=== PATIENT | female | born 2000 | race Two or more races ===

== ENCOUNTER → 2025-03-29 | Outpatient (CLI) | payer OTHER, SELFPAY ==
--- NOTE | 2025-03-29 16:27 | XR_ITS ---
Examination: Complete OB ultrasound, less than 14 weeks, transabdominal Date and time of exam: March 29, 2025 1632 hours INDICATION: Pelvic cramping beginning one week ago Technique: Obstetrical ultrasound images less than 14 weeks performed via transabdominal imaging Findings: Uterus 8.5 cm, intrauterine gestational sac several 0.5 cm corresponds to 5 weeks 2 days gestational age No pole, no cardiac activity Right ovary 3.4 cm arterial flow Left ovary 2.5 cm arterial flow IMPRESSION: Empty intrauterine gestational sac corresponding to 5 weeks 2 days gestational age Recommend continued short-term follow-up to document viability
== END | disposition home or self-care (01) ==
PROVIDERS: PCP Registered Nurse; Referring Provider Registered Nurse; Visit Provider Registered Nurse
DX: Z34.91 Encounter for supervision of normal pregnancy, unspecified, first trimester (principal)
CPT/HCPCS: 76801

== ENCOUNTER → 2025-03-30 | Outpatient (CLI) | payer OTHER, SELFPAY ==
[2025-03-30 17:49] LABS: HCG Titer if Positive Positive
[2025-03-30 18:26] LABS: Beta HCG,Quantitative 6062 mIU/mL (<5.0)
== END | disposition home or self-care (01) ==
LOC: COPL 16:34
PROVIDERS: PCP Registered Nurse; Referring Provider Registered Nurse; Visit Provider Registered Nurse
DX: Z34.91 Encounter for supervision of normal pregnancy, unspecified, first trimester (principal)
CPT/HCPCS: 36415; 84702; 84703

== ENCOUNTER → 2025-04-13 | Outpatient (CLI) | payer OTHER, SELFPAY ==
--- NOTE | 2025-04-13 10:34 | XR_ITS ---
Examination: Complete OB ultrasound, less than 14 weeks, transabdominal Date and time of exam: 2024 1059 hours INDICATIONS: Pelvic cramping and vomiting several weeks Technique: Obstetrical ultrasound images less than 14 weeks performed via transabdominal imaging Findings: A normal shaped single intrauterine gestation is present in the uterus. pole 0.7 cm correspondences 6 weeks 3 days gestational age Cardiac motion 126 BPM Ultrasonographic survey of visible and placental structures unremarkable. Amniotic fluid volume appears appropriate for this estimated gestational age. Right ovary 3.2 cm arterial flow Left ovary 2.7 cm arterial flow IMPRESSION: Viable intrauterine gestation 6 weeks 3 days.
[2025-04-13 12:32] LABS: Beta HCG,Quantitative 64729 mIU/mL (<5.0)
== END | disposition home or self-care (01) ==
LOC: CDIM 10:29 → COPL 11:21
PROVIDERS: PCP Registered Nurse; Referring Provider Registered Nurse; Visit Provider Radiology Diagnostic Radiology
DX: O26.91 Pregnancy related conditions, unspecified, first trimester (principal); Z3A.01 Less than 8 weeks gestation of pregnancy
CPT/HCPCS: 36415; 76801; 84702

== ENCOUNTER 2025-05-16 13:38 | Outpatient (AMB) | payer OTHER, SELFPAY ==
[2025-05-16 13:54] VITALS: BP 116/75; PULSE 93; RESP 17; TEMP 36.7; O2SAT 98; BMI 24.0
--- NOTE | 2025-05-16 13:54 | OBCLNT_ITS ---
Vital Signs 05/16/25 13:54 Height 1.47 m Height Method Measured Weight 52.277 kg Weight Measurement Method Standing Scale BMI 24.0 BP 116/75 Blood Pressure Source Automatic Cuff Blood Pressure Location Right Upper Arm Position Sitting Respiration 17 Pulse 93 Pulse Source Monitor Temp 98.0 F Temp Source Temporal Artery Scan Pulse Oximetry (%) 98 Oxygen Delivery Method Room Air Allergies/Home Meds Allergies & Medications Allergies No Known Allergies Allergy (Verified 05/16/25 13:55) Intake Visit Data Collection New Patient or Established: Established Patient (seen at [facility] within 3 years) Reason for Visit:: OBI Consent obtained for Telemed Visit: No Seen by Clinical Staff ONLY (RN/MA): No Civil Engineer'S Aide Required: No Do You Feel Safe at Home: Yes Authorities Contacted: N/A PCP or OBGYN visit in last 3 months: Yes Date of Last PCP or OBGYN visit: 05/15/25 Hx Now: Yes Are you currently on any form of Control: No Last menstrual period: 02/22/25 Pain Present Currently: No Pain Scale Used: Nelson-Ovalles/Numerical Pain scale:: 0 Smoking Status Smoking Status: Never smoker Questionnaires Covid-19 Vaccine Questionnaire Has patient been vacinated for Covid-19 Have you been vacinated for Covid-19: Yes PHQ-9 PHQ-2 Over the last 2 weeks, how often have you been bothered by any of the following problems? 1. Little interest or pleasure in doing things: not at all 2. Feeling down, depressed, or hopeless: not at all Total score: 0 PHQ-9 3. Trouble falling or staying asleep, or sleeping too much: Not at all 4. Feeling tired or having little energy: Not at all 5. Poor appetite or overeating: Not at all 6. Feeling bad about yourself - or that you are a failure or have let yourself or your family down: Not at all 7. Trouble concentrating on things, such as reading the newspaper or watching television: Not at all 8. Moving or speaking so slowly that other people could have noticed? - Or the opposite - being so fidgety or restless that you have been moving around a lot more than usual: not at all 9. Thoughts that you would be better off or of hurting yourself in some way: Not at all Total score: 0 If you checked off any problems, how difficult have these problems made it for you to do your work, take care of things at home, or get along with other people?: not difficult at all Source: Developed by Drs. Jasmeet Shafer, Antonina Dominguez, Claus Butler and colleagues, with an educational amanuel from [employer]. Depression screen completed yes Social History Living Situation History Lives With: Family Housing: House Tobacco History Smoking Status: Never smoker Alcohol History Alcohol Intake: Current (socially) Domestic Abuse History Do You Feel Safe at Home: Yes History of Present Illness HPI Narrative 25-year-old 3 para 0 is here for OBI appointment. Patient has a history of 2 missed carriages in the first trimester. She denies any bleeding or cramping at this time. She reports that her periods are every month and the last about 5 days. Her last period February 22, 2025. On April 13, 2025 patient was seen in the ER and she was 6 weeks 2 days. This gives an EDC December 05, 2025. The patient is very excited. Denies social habits. Denies surgery. Denies chronic illness. Father of the baby is involved and supportive. And patient is taking vitamins. 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 She had a ultrasound April 13, 2025. Patient was 6 weeks 2 and this gives a due date . 25-year-old 3 para 0 for OBI. She had a ultrasound April 13, 2025. Patient was 6 weeks 2 and this gives a due date . no sab complaints. Happy, no VB,no UC,No leaking. taking PNV Schedule OB sono for viability here at the OB. I also ordered OB panel and hemoglobin A1c for today. Patient will discuss NIPT with her insurance and when she is ready we will do the NIPT test and also schedule appointment for anatomy scan in [place]. Discussed SAB precautions. Continue vitamins. Return in 4 weeks OB check Menstrual History Menstrual reliability: definite Flow: normal Menstrual regularity: regular Monthly: Yes Age at menarche: 12 On control pills at conception: No Date of positive home test: 03/14/25 OB History : 3 Para: 0 Hx # Pregnancies: 0 Hx Total # of Abortions (Spontaneous & Elective): 2 # of Living Children: 0 Infection History & Risk Evaluation History of STDs: none HIV risk evaluation: low risk Hepatitis B risk evaluation: low risk Patient or partner has history of Genital Herpes: No Genetic Screening & History Genetic Screening/Teratology Counseling - Includes patient, baby's father, or anyone in either family with: 1. Patient's age 35 years or older as of estimated date of delivery: No 2. Thalassemia (Citizen Of [place], [place]an, Mediterranean, or Background); MCV less than 80: No 3. Neural Tube Defect (Meningomyelocele, Spina Bifida, or Anencephaly): No 4. Congenital Heart Defect: No 5. Down Syndrome: No 6. Bill-Sachs (Ashkenazi Mormonism, Cajun, Kiswahili Bermudian): No 7. Claude Disease (Ashkenazi Mormonism): No 8. Familial Dysautonomia (Ashkenazi Mormonism): No 9. Sickle Cell Disease or Trait (): No 10. Hemophilia or other blood disorders: No 11. Muscular Dystrophy: No 12. Cystic Fibrosis: No 13. Tiller's Chorea: No 14. Mental Retardation/Autism: No 15. Other inherited genetic or chromosomal disorder: No 16. Maternal Metabolic Disorder (EG,TYPE 1 Diabetes, PKU): No 17. Patient or baby's father had a child with defects not listed above: No 18. Recurrent loss or a stillbirth: No 19. Medications (including supplements, vitamins, herbs or otc drugs)/illicit/recreational drugs/alcohol since last menstrual period: No 20. Any other: No Infection History 1. Live with someone with TB or exposed to TB: No 2. Rash or viral illness since last menstrual period: No 3. Hepatitis B,C: No Other (see comments) Source: [employer] Review of Systems Review of Systems Systems Reviewed: All systems reviewed, normal except as documented Exam General Limitations: no limitations General Appearance: alert, in no apparent distress, comfortable, cooperative, healthy appearing, well developed and well groomed Neck Neck exam: Present normal inspection, full ROM and trachea midline Chest Chest inspection: Present normal inspection and symmetric chest wall rise Resp Respiratory exam: Present normal lung sounds bilaterally Card Cardiovascular exam: Present regular rate, normal rhythm and normal heart sounds Psych Psychiatric exam: Present normal affect and normal mood Office Procedures OB Clinic LOC & Office Proc's Nursing/Assessment Patient Status: Established Patient OB Clinic Nursing Assessment: Medication Reconciliation, Update PMH in EMR and Vital Signs OB Clinic Coordination of Care: Complex Care and Chronic Disease 1-5, Con sent,records obtained, informed consent, Education Simp Pt/Fam, 4+ Authorizations needed and Lab and Imaging orders Special Needs: Heart tones Established Patient Charge Established Patient Point Assignment: 145 Established Patient Point Charge: EP Level 4 (120-155) Assessment & Plan Diagnosis / Problem List (1) High-risk in first trimester: Status: Acute (2) Prior miscarriage with , antepartum: Status: Acute Plan OB panel and sono for viability here at [facility]. Discussed SAB precautions. Patient will be applying for [employer]. Patient is also going to talk with her current insurance to see if they will cover NIPT and gender screening and also OB sono at [facility]. Return in 4 weeks OB check Additional Plan Follow Up: 4 Weeks (obc)
== END 2025-05-16 14:28 | disposition home or self-care (01) ==
LOC: HODSOBC 13:38
PROVIDERS: PCP Registered Nurse; Referring Provider Registered Nurse; Supervising Provider Advanced Practice Midwife; Visit Provider Advanced Practice Midwife
DX: O09.291 Supervision of pregnancy with other poor reproductive or obstetric history, first trimester (principal); O26.21 Pregnancy care for patient with recurrent pregnancy loss, first trimester; Z3A.11 11 weeks gestation of pregnancy
CPT/HCPCS: 99214; G0463

== ENCOUNTER 2025-06-13 13:56 | Outpatient (AMB) | payer OTHER, SELFPAY ==
[2025-06-13 14:11] VITALS: BP 114/78; PULSE 96; RESP 17; TEMP 36.8; O2SAT 98; BMI 25.4
--- NOTE | 2025-06-13 14:11 | AMB.OBVISIT ---
Vital Signs 06/13/25 14:11 Height 1.47 m Height Method Measured Weight 54.998 kg Weight Measurement Method Standing Scale BMI 25.4 BP 114/78 Blood Pressure Source Automatic Cuff Blood Pressure Location Right Upper Arm Position Sitting Respiration 17 Pulse 96 Pulse Source Monitor Temp 98.3 F Temp Source Temporal Artery Scan Pulse Oximetry (%) 98 Oxygen Delivery Method Room Air Allergies/Home Meds Allergies & Medications Allergies No Known Allergies Allergy (Verified 06/13/25 14:12) Intake Visit Data Collection New Patient or Established: Established Patient (seen at [facility] within 3 years) Reason for Visit:: OBC Consent obtained for Telemed Visit: No Seen by Clinical Staff ONLY (RN/MA): No Recreational Specialist Required: No Do You Feel Safe at Home: Yes Authorities Contacted: N/A PCP or OBGYN visit in last 3 months: Yes Date of Last PCP or OBGYN visit: 05/16/25 Hx Now: Yes Are you currently on any form of Control: No Pain Present Currently: No Pain Scale Used: Nelsno-Ovalles/Numerical Pain scale:: 0 Smoking Status Smoking Status: Never smoker Questionnaires Covid-19 Vaccine Questionnaire Has patient been vacinated for Covid-19 Have you been vacinated for Covid-19: Yes PHQ-9 PHQ-2 Over the last 2 weeks, how often have you been bothered by any of the following problems? 1. Little interest or pleasure in doing things: not at all PHQ-9 3. Trouble falling or staying asleep, or sleeping too much: Not at all 4. Feeling tired or having little energy: Not at all 5. Poor appetite or overeating: Not at all 6. Feeling bad about yourself - or that you are a failure or have let yourself or your family down: Not at all 7. Trouble concentrating on things, such as reading the newspaper or watching television: Not at all 8. Moving or speaking so slowly that other people could have noticed? - Or the opposite - being so fidgety or restless that you have been moving around a lot more than usual: not at all 9. Thoughts that you would be better off or of hurting yourself in some way: Not at all If you checked off any problems, how difficult have these problems made it for you to do your work, take care of things at home, or get along with other people?: not difficult at all Source: Developed by Drs. Jasmeet Shafer, Antonina Dominguez, Claus Butler and colleagues, with an educational amanuel from [employer]. 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 She had a ultrasound April 13, 2025. Patient was 6 weeks 2 and this gives a due date . 25-year-old 3 para 0 for OBI. She had a ultrasound April 13, 2025. Patient was 6 weeks 2 and this gives a due date . no sab complaints. Happy, no VB,no UC,No leaking. taking PNV Schedule OB sono for viability here at the OB. I also ordered OB panel and hemoglobin A1c for today. Patient will discuss NIPT with her insurance and when she is ready we will do the NIPT test and also schedule appointment for anatomy scan in [place]. Discussed SAB precautions. Continue vitamins. Return in 4 weeks OB check 06/13/25 <del>?</del> 15w 6d 54.998 kg 114/78 absent unknown 15 155 absent Doing well. Positive light movement. Patient denies leaking, denies bleeding, denies contractions. New swab today for GC and chlamydia. RPR, rubella, hepatitis B, hep C today. Discussed with patient ordering NIPT, carrier screen and AFP. And referral was requested for those. And I did a maternal- medicine ultrasound scheduled with Dr. Marr. Discussed SAB precautions. Return in 4 weeks for OB check EZEQUIEL Calculator Estimated Delivery Date Method Current WG Current Estimate 11/29/25 LMP (Certain) 15w 6d Notes Visit Date: 06/13/25 Last Updated by: Emi Paredes CNM 25 yo . B+,abs-, RPR Visit Date: 05/16/25 Last Updated by: Emi Paredes CNM sono 04/13/25: 6w2. EDC 12/05/25 Exam General Limitations: no limitations General Appearance: alert, in no apparent distress, comfortable, cooperative, healthy appearing, well developed and well groomed Head Head exam: atraumatic, normocephalic and normal inspection Chest Chest inspection: Present normal inspection and symmetric chest wall rise Resp Respiratory exam: Present normal lung sounds bilaterally Abdominal Abdominal exam: Present soft and normal bowel sounds Psych Psychiatric exam: Present normal affect and normal mood Office Procedures OB Clinic LOC & Office Proc's Nursing/Assessment Patient Status: Established Patient OB Clinic Nursing Assessment: Medication Reconciliation, Update PMH in EMR and Vital Signs OB Clinic Coordination of Care: Complex Care and Chronic Disease 1-5, Education Complex Pt/Fam, Consent,records obtained, informed consent and Results/Orders obtained Special Needs: Heart tones Established Patient Charge Established Patient Point Assignment: 115 Established Patient Point Charge: EP Level 3 (80-115) Assessment & Plan Diagnosis / Problem List (1) High-risk in first trimester: Status: Acute (2) Prior miscarriage with , antepartum: Status: Acute Plan New swab today for GC and chlamydia. RPR, rubella, hepatitis B, HIV, hep C sent to [facility]. Discussed patient getting AFP, NIPT and carrier screens. Patient to follow-up with her insurance as to what she can do. Referral done. A referral to [facility] for anatomy scan was done. Discussed SAB precautions Additional Plan Follow Up: 4 Weeks (obc)
== END 2025-06-13 15:08 | disposition home or self-care (01) ==
LOC: HODSOBC 13:56
PROVIDERS: Supervising Provider Advanced Practice Midwife; Visit Provider Advanced Practice Midwife
DX: O09.292 Supervision of pregnancy with other poor reproductive or obstetric history, second trimester (principal); Z3A.15 15 weeks gestation of pregnancy
CPT/HCPCS: 99213; G0463

== ENCOUNTER 2025-06-30 11:30 | Outpatient (AMB) | payer MEDICAID, SELFPAY ==
--- NOTE | 2025-06-30 11:38 | OBCLNT_ITS ---
Vital Signs 06/30/25 11:45 Height 1.47 m Height Method Stated Weight 56.472 kg Weight Measurement Method Standing Scale BMI 26.1 BP 108/69 Blood Pressure Source Automatic Cuff Blood Pressure Location Left Upper Arm Position Sitting Respiration 17 Pulse 89 Pulse Source Monitor Temp 98.9 F Temp Source Temporal Artery Scan Pulse Oximetry (%) 98 Oxygen Delivery Method Room Air Allergies/Home Meds Allergies & Medications Allergies No Known Allergies Allergy (Verified 06/30/25 11:46) Medication Reconciliation Unobtainable 06/30/25 [History Confirmed 06/30/25] Intake Visit Data Collection New Patient or Established: Established Patient (seen at [facility] within 3 years) Reason for Visit:: OBC Seen by Clinical Staff ONLY (RN/MA): No 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 1. Little interest or pleasure in doing things: not at all 2. Feeling down, depressed, or hopeless: not at all Total score: 0 PHQ-9 3. Trouble falling or staying asleep, or sleeping too much: Not at all 4. Feeling tired or having little energy: Not at all 5. Poor appetite or overeating: Not at all 6. Feeling bad about yourself - or that you are a failure or have let yourself or your family down: Not at all 7. Trouble concentrating on things, such as reading the newspaper or watching television: Not at all 8. Moving or speaking so slowly that other people could have noticed? - Or the opposite - being so fidgety or restless that you have been moving around a lot more than usual: not at all 9. Thoughts that you would be better off or of hurting yourself in some way: Not at all Total score: 0 If you checked off any problems, how difficult have these problems made it for you to do your work, take care of things at home, or get along with other people?: not difficult at all Source: Developed by Drs. Jasmeet Shafer, Antonina Dominguez, Claus Butler and colleagues, with an educational amanuel from [employer]. 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 She had a ultrasound April 13, 2025. Patient was 6 weeks 2 and this gives a due date . 25-year-old 3 para 0 for OBI. She had a ultrasound April 13, 2025. Patient was 6 weeks 2 and this gives a due date . no sab complaints. Happy, no VB,no UC,No leaking. taking PNV Schedule OB sono for viability here at the OB. I also ordered OB panel and hemoglobin A1c for today. Patient will discuss NIPT with her insurance and when she is ready we will do the NIPT test and also schedule appointment for anatomy scan in [place]. Discussed SAB precautions. Continue vitamins. Return in 4 weeks OB check 06/13/25 -?-?-?-?-?-?-?-?-?-?-?-?- 15w 6d 54.998 kg 114/78 absent unknown 15 155 absent Doing well. Positive light movement. Patient denies leaking, denies bleeding, denies contractions. New swab today f or GC and chlamydia. RPR, rubella, hepatitis B, hep C today. Discussed with patient ordering NIPT, carrier screen and AFP. And referral was requested for those. And I did a maternal- medicine ultrasound scheduled with Dr. Marr. Discussed SAB precautions. Return in 4 weeks for OB check 06/30/25 -?-?-?-?-?--?-?-?-?-?-?-?- 18w 2d 56.472 kg 108/69 absent unknown 18 145 active Doing well today. Light movement. Denies bleeding, leaking, contractions. Complains of second trimester discomfort Isabella ent needs OB panel when she comes next visit. NIPT and AFP were today. Ultrasound of Dr. Marr is pending. Return in 4 weeks OB check EZEQUIEL Calculator Estimated Delivery Date Method Current WG Current Estimate 11/29/25 LMP (Certain) 18w 2d Notes Visit Date: 06/30/25 Last Updated by: Emi Paredes CNM sono: 04/13/25: 6w3: edc: 12/03/25. LMP: 02/26/25 partial OB labs: HIV-, A1c: 5.3, Visit Date: 06/13/25 Last Updated by: Emi Paredes CNM 25 yo . B+,abs-, RPR Visit Date: 05/16/25 Last Updated by: Emi Paredes CNM sono 04/13/25: 6w2. EDC 12/05/25 Office Procedures OB Clinic LOC & Office Proc's Nursing/Assessment Patient Status: Established Patient OB Clinic Nursing Assessment: Medication Reconciliation, Update PMH in EMR and Vital Signs OB Clinic Coordination of Care: Complex Care and Chronic Disease 1-5, Consent,records obtained, informed consent, Education Simp Pt/Fam and Staff clarify orders Special Needs: Heart tones Established Patient Charge Established Patient Point Assignment: 115 Established Patient Point Charge: EP Level 3 (80-115) Assessment & Plan Diagnosis / Problem List (1) Encounter for supervision of high risk in second trimester, antepartum: Status: Acute Plan OB panel next visit. MFM referral pending. Discussed SAB precautions. Discussed comfort measures for second trimester discomforts and return in 4 weeks OB check. Jose NIPT and AFP were done today Additional Plan Follow Up: 4 Weeks (obc)
[2025-06-30 11:45] VITALS: BP 108/69; PULSE 89; RESP 17; TEMP 37.2; O2SAT 98; BMI 26.1
== END 2025-06-30 12:22 | disposition home or self-care (01) ==
PROVIDERS: Supervising Provider Advanced Practice Midwife; Visit Provider Advanced Practice Midwife
DX: O09.92 Supervision of high risk pregnancy, unspecified, second trimester (principal); Z3A.18 18 weeks gestation of pregnancy
CPT/HCPCS: 99213; G0463

== ENCOUNTER 2025-07-08 08:35 | Emergency (ER) | payer MEDICAID, SELFPAY ==
[2025-07-08 08:53] VITALS: BP 114/76; PULSE 95; RESP 18; TEMP 36.9; O2SAT 99; BMI 25.0
--- NOTE | 2025-07-08 08:57 | XR_ITS ---
Examination: Complete OB ultrasound greater than 14 weeks Date and time of exam: July 08, 2025 1002 hours INDICATIONS: Pelvic pain lower back pain onset today. Findings: Viable intrauterine single fetus with single amniotic sac presentation transverse head maternal left Cardiac motion 162 BPM Placenta posterior maternal right grade 0 Umbilical cord insertion 3 vessel seen Cervix 3.0 cm spine anterior Ovaries obscured by bowel gas Composite estimated gestational age based on BPD, head circumference, abdominal circumference, femur length is 19 weeks 1 day, estimated weight 265.5 g. Survey of intracranial anatomy, spinal anatomy, abdominal anatomy, four-chamber heart performed with no abnormalities identified. Impression: Viable intrauterine gestation transverse presentation.
--- NOTE | 2025-07-08 08:58 | PD.EDPREG ---
ED OB Contraction Preg RMI/HPI General Chief complaint: Nausea/Vomiting/Diarrhea Stated complaint: 19 WEEKS N/V/D SINCE YESTERDAY Time Seen by Provider: 07/08/25 09:05 Source: patient Arrival date/time: 07/08/25 08:35 25-year-old female with no known medical history presents to the emergency room with a chief complaint of nausea vomiting abdominal cramping x 2 days patient is currently 19 weeks . Patient denies vaginal bleeding Mode of arrival: ambulatory Limitations: no limitations Related Data Previous Rx's ?Medication ?Instructions ?Recorded ondansetron 4 mg disintegrating 4 mg PO Q8H PRN nausea and 07/08/25 tablet vomiting #14 tabs Allergies Allergy/AdvReac Type Severity Reaction Status Date / Time No Known Allergies Allergy Verified 07/08/25 08:39 Review of Systems Review of Systems Systems Reviewed: All systems reviewed, normal except as documented Constitutional Constitutional: Reports system reviewed and no additional complaints, except as documented, Denies fatigue, Denies fever(s), Denies headache(s) and Denies weakness Eyes Eyes: Reports system reviewed and no additional complaints, except as documented, Denies blurry vision and Denies change in vision ENT Ears, Nose, Mouth, and Throat: Reports system reviewed and no additional complaints, except as documented, Denies otalgia, Denies headache(s), Denies nasal congestion, Denies throat swelling and Denies vertigo Cardiovascular Cardiovascular: Reports system reviewed and no additional complaints, except as documented, Denies chest pain, Denies dyspnea and Denies dyspnea on exertion Respiratory Respiratory: Reports system reviewed and no additional complaints, except as documented, Denies chest congestion, Denies cough, Denies dyspnea, Denies dyspnea on exertion and Denies wheezing Gastrointestinal Gastrointestinal: Reports system reviewed and no additional complaints, except as documented, Reports abdominal pain, Reports cramping, Reports nausea and Reports vomiting Genitourinary Genitourinary: Reports system reviewed and no additional complaints, except as documented Musculoskeletal Musculoskeletal: Reports system reviewed and no additional complaints, except as documented and Denies back pain Integumentary/Breasts Skin/Breast: Reports system reviewed and no additional complaints, except as documented and Denies wounds Neurologic Neurologic: Reports system reviewed and no additional complaints, except as documented, Denies confusion, Denies headache(s), Denies lack of coordination, Denies vertigo and Denies weakness Psychiatric Psychiatric: Reports system reviewed and no additional complaints, except as documented, Denies anxiety, Denies confusion, Denies depression, Denies paranoia, Denies suicidal ideation and Denies tactile hallucinations Endocrine Endocrine: Reports system reviewed and no additional complaints, except as documented and Denies fatigue Hematologic/Lymphatic Hematologic/Lymphatic: Reports system reviewed and no additional complaints, except as documented and Denies lymphadenopathy Allergic/Immunologic Allergic/Immunologic: Reports system reviewed and no additional complaints, except as documented, Denies throat swelling, Denies urticaria and Denies wheezing Past Medical History Past Medical History CARDIAC: Negative Congestive Heart Failure RESPIRATORY: Positive Asthma; Negative Chronic Obstructive Pulmonary Disease (COPD) GENITOURINARY: Negative Renal Disease ENDOCRINE: Negative Diabetes Mellitus Type 1 or Diabetes Mellitus Type 2 Social History SMOKING STATUS: Never smoker SECOND HAND EXPOSURE: No SUBSTANCE USE: does not use ED Exam General Limitations: Present no limitations General appearance: Present alert and in no apparent distress Head Head exam: Present atraumatic Eye Eye exam: Present normal appearance, PERRL and EOMI ENT ENT exam: Present normal exam, normal oropharynx and mucous membranes moist Neck Neck exam: Present normal inspection, full ROM and trachea midline Chest Chest inspection: Present normal inspection and symmetric chest wall rise Respiratory Respiratory exam: Present normal lung sounds bilaterally Cardiovascular Cardiovascular exam: Present regular rate, normal rhythm and normal heart sounds Abdominal Exam Abdominal exam: Present soft, tenderness and normal bowel sounds Abdominal tenderness: Present suprapubic and mild Extremities Exam Extremities exam: Present normal inspection and full ROM Back Exam Back exam: Present normal inspection and full ROM Neurological Exam Neurological exam: Present alert, oriented X3 and CN II-XII intact Psychiatric Psychiatric exam: Present normal affect and normal mood Skin Skin exam: Present warm, dry, intact and normal color Course Quality Measures none Orders Category Date Time Status US OB >= 14 weeks Fetus Stat Exams 07/08/25 08:57 Completed ABO/RH Type Stat Lab 07/08/25 09:28 Completed Beta HCG,Quantitative Stat Lab 07/08/25 09:28 Completed CBC Stat Lab 07/08/25 09:28 Completed CMP [Comprehensive Metabolic Panel] Stat Lab 07/08/25 09:28 Completed UA [Urinalysis] Stat Lab 07/08/25 11:04 Completed Ondansetron Odt [Zofran Odt] Med 07/08/25 09:11 Discontinued 4 mg PO X1 ONE Vital Signs Vital signs: Vital Signs Temperature 98.5 F 07/08/25 08:53 Pulse Rate 95 07/08/25 08:53 Respiratory Rate 18 07/08/25 08:53 Blood Pressure 114/76 07/08/25 08:53 Pulse Oximetry (%) 99 07/08/25 08:53 Oxygen Delivery Method Room Air 07/08/25 08:53 OB/Uterine Contractions MDM Narrative MDM Narrative:: 25-year-old female with no known medical history presents to the emergency room with a chief complaint of nausea vomiting abdominal cramping x 2 days patient is currently 19 weeks . Patient denies vaginal bleeding Patient is hemodynamically stable and in no apparent distress Physical examination shows some mild abdominal cramping but there is no severe tenderness with palpation Ultrasound OB was completed and shows a viable intrauterine gestation at 19 weeks and 1 day. heart tones at 162 bpm hCG levels are at 40,520 Medication was given to the patient with improvement to her vomiting symptoms Patient was discharged and educated to follow-up with primary care provider in the next 24 to 48 hours and return to the emergency room for any evidence of worsening signs or symptoms Patient data External records reviewed:: [facility] previous records Clinical information provided by:: patient Social determinants that could affect healthcare access:: none Patient has the following chronic illnesses:: No chronic illness How is presenting disease/condition affected by chronic disease/condition?: no chronic disease Evaluation data The following diagnostics were reviewed and interpreted by me:: lab results and radiology exam(s) Lab and/or radiology exams considered but not ordered:: Labs and radiology exams considered and ordered Interpretation Summary: Ultrasound OB-Findings: Viable intrauterine single fetus with single amniotic sac presentation transverse head maternal left Cardiac motion 162 BPM Placenta posterior maternal right grade 0 Umbilical cord insertion 3 vessel seen Cervix 3.0 cm spine anterior Ovaries obscured by bowel gas Composite estimated gestational age based on BPD, head circumference, abdominal circumference, femur length is 19 weeks 1 day, estimated weight 265.5 g. Survey of intracranial anatomy, spinal anatomy, abdominal anatomy, four-chamber heart performed with no abnormalities identified. Impression: Viable intrauterine gestation transverse presentation. Medications / Prescriptions Medications or Prescriptions considered but not ordered:: Medication given Medication administrations:: Medication Administration History Discontinued Medications Ondansetron HCl (Ondansetron Odt 4 Mg Tabrap) 4 mg PO X1 ONE; Protocol Stop: 07/08/25 09:12 Last Admin: 07/08/25 09:32 Dose: 4 mg Documented By: Medication given Consultations Consultation(s) initiated? (list below): No Diagnosis OB Contractions Differential Diagnosis: other (Pelvic pain in /eclampsia/nausea and vomiting in /threatened ) Most likely diagnosis given after review of the tests above:: Pelvic pain in Admission Indicated Admission indicated?: not indicated Explain why admission is indicated or not indicated:: N/A Admission Request Was there a request for admission?: No Disposition Plan Disposition Plan: Discharge Discharge Attestation Discharge Attestation: The patient and all family members were given an opportunity to ask questions and understood the discharge instructions. Discharge instructions specifically effects, indications for sooner follow up or return to the emergency department, and the expected course of current diagnosis. Patient condition: Stable Discharge Plan Plan Patient Disposition: HOME (Self Care) Discharge Disposition comment: Stable Prescriptions/Referrals Prescriptions/Med Rec: New ondansetron 4 mg tablet,disintegrating 4 mg PO Q8H PRN (Reason: nausea and vomiting) Qty: 14 0RF Referrals: Anni Bose GLAZING DEPARTMENT SUPERVISOR [Primary Care Provider] - In 1 week Problem List Clinical Impression: Nausea and vomiting during , Back pain affecting Patient/Caregiver Discharge Instructions Education Materials: ED Vomiting (Adult) Additional Instructions: Please follow-up with your LEAD RETAIL SALES ASSOCIATE in the next 24 to 48 hours Medication was sent to your pharmacy to help you with your vomiting symptoms Your is currently in good standing. You are currently 19 weeks and 1 day. Your heart tones at 162 bpm. Your hCG levels are 40,520. For any evidence of worsening signs or symptoms return to emergency room immediately Print Language: Estonian Stand Alone Forms: Jia Award Info., Patient Portal Info Letter PA/RETAIL BRAND AMBASSADOR Supervising Physician PA/RETAIL BRAND AMBASSADOR Supervising Physician: Dr. Riley
[2025-07-08] MEDS: ONDANSETRON ODT 4 MG TABRAP PO (09:32)
[2025-07-08 09:46] LABS: Basophils # (Auto) 0.0 Thou/mm3 (0.0-0.2); Basophils % (Auto) 0 % (0-2.5); Eosinophils # (Auto) 0.0 Thou/mm3 (0.0-0.5); Eosinophils % (Auto) 0 % (0-10); Hematocrit 39.6 % (36.0-46.0); Hemoglobin 13.4 g/dL (12.0-16.0); Immature Granulocytes Auto 0.09 Thou/mm3 (0.00-0.00); Lymphocytes # (Auto) 0.3 Thou/mm3 (1.0-4.8); Lymphocytes % (Auto) 2 % (10-50); Mean Corpuscular HGB Conc 33.8 g/dl (31.0-37.0); Mean Corpuscular Hemoglobin 29.5 pg (25.0-35.0); Mean Corpuscular Volume 87 fL (80-100); Monocytes # (Auto) 0.3 Thou/mm3 (0.0-0.8); Monocytes % (Auto) 2 % (0-12); Neutrophils # (Auto) 13.1 Thou/mm3 (1.8-7.7); Neutrophils % (Auto) 95 % (37-80); Nucleated Red Blood Cell # 0.00 Thou/mm3 (0.00-0.00); Nucleated Red Blood Cell % 0 /100 WBC (0); Platelet Count 223 Thou/mm3 (140-440); RDW Standard Deviation 41.0 fL (36.4-46.3); Red Blood Count 4.54 Miln/mm3 (4.00-5.20); White Blood Count 13.8 Thou/mm3 (3.6-11.0)
[2025-07-08 10:21] LABS: Alanine Aminotransferase 37 U/L (10-49); Albumin, Serum 4.2 gm/dL (3.5-5.0); Albumin/Globulin Ratio 1.8 (1.2-2.2); Alkaline Phosphatase 72 U/L (46-116); Anion Gap 12 (7-16); Aspartate Amino Transferase 25 U/L (0-34); BUN/Creatinine Ratio 13 Ratio (12-20); Bilirubin,Total 0.6 mg/dL (0.3-1.2); Blood Urea Nitrogen 8 mg/dL (9-23); Calcium 10.6 mg/dL (8.3-10.6); Calcium (Corrected) 10.6 mg/dL (8.5-10.1); Carbon Dioxide 23.4 mMol/L (20.0-31.0); Chloride 105 mMol/L (98-107); Creatinine (Component) 0.6 mg/dL (0.6-1.3); Estimated Creatinine Clearance 108.6 mL/min (>60); Globulin 2.4 gm/dL (2.3-3.5); Glucose 111 mg/dL (74-106); Osmolality,Calculated 278 (275-295); Potassium 4.0 mMol/L (3.4-5.1); Sodium 140 mMol/L (136-145); Total Protein 6.6 gm/dL (5.7-8.2); eGFR > 60 See Note
[2025-07-08 10:52] LABS: Beta HCG,Quantitative 40520 mIU/mL (<5.0)
[2025-07-08 11:14] LABS: Collection Type, Urine Clean Catch
[2025-07-08 11:17] LABS: Bacteria,Urine 1+; Bilirubin,Urine Negative (Negative); Blood,Urine Negative (Negative); Clarity,Urine Clear (Clear/Hazy); Color,Urine Yellow (Lt Yel-Yel); Glucose, Urine Negative (Negative); Ketones,Urine 2+ (Negative); Leukocyte Esterase,Urine Negative (Negative); Nitrite,Urine Negative (Negative); PH,Urine 5.0 (5.0-7.0); Protein,Urine Trace (Neg - Trace); RBC,Urine 3 /hpf (0-3); Specific Gravity,Urine 1.029 (1.001-1.035); Squamous Epithelial Cell,Urine 5 /hpf (0-5); Urobilinogen,Urine Negative mg/dL (0.0-1.0); WBC,Urine 4 /hpf (0-5)
[2025-07-08 11:33] VITALS: BP 123/76; PULSE 100; RESP 18; TEMP 37; O2SAT 98
== END 2025-07-08 11:35 | disposition home or self-care (01) ==
PROVIDERS: Nurse Practitioner Family; Emergency Provider Family Medicine; PCP Registered Nurse
DX: O21.9 Vomiting of pregnancy, unspecified (principal); O99.891 Other specified diseases and conditions complicating pregnancy; M54.9 Dorsalgia, unspecified; O32.2XX0 Maternal care for transverse and oblique lie, not applicable or unspecified; Z3A.19 19 weeks gestation of pregnancy
CPT/HCPCS: 36415; 76805; 80053; 81001; 84702; 85025; 86900; 86901; 99283; Q0162

== ENCOUNTER 2025-07-12 11:34 | Outpatient (AMB) | payer MEDICAID, SELFPAY ==
[2025-07-12 11:45] VITALS: BP 121/73; PULSE 96; RESP 16; TEMP 36.2; O2SAT 98; BMI 25.2
--- NOTE | 2025-07-12 11:45 | OBCLNT_ITS ---
Vital Signs 07/12/25 11:45 Height 1.5 m Height Method Stated Weight 56.869 kg Weight Measurement Method Standing Scale BMI 25.2 BP 121/73 Blood Pressure Source Automatic Cuff Blood Pressure Location Right Lower Arm Position Sitting Respiration 16 Pulse 96 Pulse Source Monitor Temp 97.2 F Temp Source Oral Pulse Oximetry (%) 98 Oxygen Delivery Method Room Air Allergies/Home Meds Allergies & Medications Allergies No Known Allergies Allergy (Verified 07/12/25 11:46) Medication Reconciliation ondansetron 4 mg disintegrating tablet 4 mg PO Q8H PRN nausea and vomiting #14 tabs 07/08/25 [Rx Confirmed 07/12/25] Intake Visit Data Collection New Patient or Established: Established Patient (seen at [facility] within 3 years) Reason for Visit:: OBC Seen by Clinical Staff ONLY (RN/MA): No 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 1. Little interest or pleasure in doing things: not at all 2. Feeling down, depressed, or hopeless: not at all Total score: 0 PHQ-9 3. Trouble falling or staying asleep, or sleeping too much: Not at all 4. Feeling tired or having little energy: Not at all 5. Poor appetite or overeating: Not at all 6. Feeling bad about yourself - or that you are a failure or have let yourself or your family down: Not at all 7. Trouble concentrating on things, such as reading the newspaper or watching television: Not at all 8. Moving or speaking so slowly that other people could have noticed? - Or the opposite - being so fidgety or restless that you have been moving around a lot more than usual: not at all 9. Thoughts that you would be better off or of hurting yourself in some way: Not at all Total score: 0 If you checked off any problems, how difficult have these problems made it for you to do your work, take care of things at home, or get along with other people?: not difficult at all Source: Developed by Drs. Jasmeet Shafer, Antonina Dominguez, Claus Butler and colleagues, with an educational amanuel from [employer]. 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 She had a ultrasound April 13, 2025. Patient was 6 weeks 2 and this gives a due date . 25-year-old 3 para 0 for OBI. She had a ultrasound April 13, 2025. Patient was 6 weeks 2 and this gives a due date . no sab complaints. Happy, no VB,no UC,No leaking. taking PNV Schedule OB sono for viability here at the OB. I also ordered OB panel and hemoglobin A1c for today. Patient will discuss NIPT with her insurance and when she is ready we will do the NIPT test and also schedule appointment for anatomy scan in [place]. Discussed SAB precautions. Continue vitamins. Return in 4 weeks OB check 06/13/25 -?-?-?-?-?-?-?-?-?-?-?-?- 15w 6d 54.998 kg 114/78 absent unknown 15 155 absent Doing well. Positive light movement. Patient denies leaking, denies bleeding, denies contractions. New swab today f or GC and chlamydia. RPR, rubella, hepatitis B, hep C today. Discussed with patient ordering NIPT, carrier screen and AFP. And referral was requested for those. And I did a maternal- medicine ultrasound scheduled with Dr. Marr. Discussed SAB precautions. Return in 4 weeks for OB check 06/30/25 -?-?-?--?-?-?-?-?-?-?-?-?- 18w 2d 56.472 kg 108/69 absent unknown 18 145 active Doing well today. Light movement. Denies bleeding, leaking, contractions. Complains of second trimester discomfort Isabella ent needs OB panel when she comes next visit. NIPT and AFP were today. Ultrasound of Dr. Marr is pending. Return in 4 weeks OB check 07/12/25 -?-?-?-?-?-?-?-?-?-?-?-?- 20w 0d 56.869 kg 121/73 absent unknown 20 140 active Reports movement. Denies bleeding, denies leaking, denies contractions. Discussed with OB. Placed patient on disability for 2-month intervals. Patient will be off work until September 12, 2025. Third trimester labs next visit. Include type Rh and ABO and RPR. MFM appointment is pending. Discussed labor precautions. Increase fluids. Return in 4 weeks OB check EZEQUIEL Calculator Estimated Delivery Date Method Current WG Current Estimate 11/29/25 LMP (Certain) 20w 0d Other Estimates 12/04/25 Ultrasound #1 19w 2d 12/01/25 Ultrasound #2 19w 5d Notes Visit Date: 07/12/25 Last Updated by: Emi Paredes CNM 07/05: SMA-, HCV-,A1: 5.3, HIV-, HBSAG-, CF:pending, B+, GC/CT-, UA:clear Visit Date: 06/30/25 Last Updated by: Emi Paredes CNM sono: 04/13/25: 6w3: edc: 12/03/25. LMP: 02/26/25 partial OB labs: HIV-, A1c: 5.3, Visit Date: 06/13/25 Last Updated by: Emi Paredes CNM 25 yo . B+,abs-, RPR Visit Date: 05/16/25 Last Updated by: PARESH Small 04/13/25: 6w2. EDC 12/05/25 Office Procedures OB Clinic LOC & Office Proc's Nursing/Assessment Patient Status: Established Patient OB Clinic Nursing Assessment: Medication Reconciliation, Update PMH in EMR and Vital Signs OB Clinic Coordination of Care: Consent,records obtained, informed consent, Education Simp Pt/Fam, Lab and Imaging orders and Staff clarify orders Special Needs: Heart tones Established Patient Charge Established Patient Point Assignment: 105 Established Patient Point Charge: EP Level 3 (80-115) Assessment & Plan Diagnosis / Problem List (1) Encounter for supervision of high risk in second trimester, antepartum: Status: Acute Plan Off work in 2-week intervals beginning today. Reevaluate September 12, 2025. Discussed labor precautions. Rest. Maternal- medicine appointment is pending. Third trimester labs next visit including RPR, type Rh and antibody screen. Return in 4 weeks OB check Additional Plan Follow Up: 4 Weeks (obc)
== END 2025-07-12 12:10 | disposition home or self-care (01) ==
PROVIDERS: Supervising Provider Advanced Practice Midwife; Visit Provider Advanced Practice Midwife
DX: O09.92 Supervision of high risk pregnancy, unspecified, second trimester (principal); Z3A.20 20 weeks gestation of pregnancy
CPT/HCPCS: 99213; G0463

== ENCOUNTER 2025-08-03 15:05 | Outpatient (AMB) | payer MEDICAID, SELFPAY ==
--- NOTE | 2025-08-03 15:10 | AMB.OBVISIT ---
Vital Signs 08/03/25 15:11 Height 1.5 m Height Method Stated Weight 59.137 kg Weight Measurement Method Standing Scale BMI 26.2 BP 137/75 H Blood Pressure Source Automatic Cuff Blood Pressure Location Left Upper Arm Position Sitting Respiration 16 Pulse 96 Pulse Source Monitor Temp 97.2 F Temp Source Oral Pulse Oximetry (%) 98 Oxygen Delivery Method Room Air Allergies/Home Meds Allergies & Medications Allergies No Known Allergies Allergy (Verified 08/03/25 15:11) Medication Reconciliation ondansetron 4 mg disintegrating tablet 4 mg PO Q8H PRN nausea and vomiting #14 tabs 07/08/25 [Rx Confirmed 08/03/25] Intake Visit Data Collection New Patient or Established: Established Patient (seen at [facility] within 3 years) Reason for Visit:: OBC Seen by Clinical Staff ONLY (RN/MA): No Brake Specialist Required: No Do You Feel Safe at Home: Yes Authorities Contacted: N/A PCP or OBGYN visit in last 3 months: Yes Date of Last PCP or OBGYN visit: 07/12/25 Hx Now: Yes Are you currently on any form of Control: No Pain Present Currently: No Pain Scale Used: Nelson-Ovalles/Numerical Pain scale:: 0 Smoking Status Smoking Status: Never smoker Questionnaires Covid-19 Vaccine Questionnaire Has patient been vacinated for Covid-19 Have you been vacinated for Covid-19: Yes PHQ-9 PHQ-2 Over the last 2 weeks, how often have you been bothered by any of the following problems? 1. Little interest or pleasure in doing things: not at all 2. Feeling down, depressed, or hopeless: not at all Total score: 0 PHQ-9 3. Trouble falling or staying asleep, or sleeping too much: Not at all 4. Feeling tired or having little energy: Not at all 5. Poor appetite or overeating: Not at all 6. Feeling bad about yourself - or that you are a failure or have let yourself or your family down: Not at all 7. Trouble concentrating on things, such as reading the newspaper or watching television: Not at all 8. Moving or speaking so slowly that other people could have noticed? - Or the opposite - being so fidgety or restless that you have been moving around a lot more than usual: not at all 9. Thoughts that you would be better off or of hurting yourself in some way: Not at all Total score: 0 If you checked off any problems, how difficult have these problems made it for you to do your work, take care of things at home, or get along with other people?: not difficult at all Source: Developed by Drs. Jasmeet Shafer, Antonina Dominguez, Claus Butler and colleagues, with an educational amanuel from [employer]. 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 She had a ultrasound April 13, 2025. Patient was 6 weeks 2 and this gives a due date . 25-year-old 3 para 0 for OBI. She had a ultrasound April 13, 2025. Patient was 6 weeks 2 and this gives a due date . no sab complaints. Happy, no VB,no UC,No leaking. taking PNV Schedule OB sono for viability here at the OB. I also ordered OB panel and hemoglobin A1c for today. Patient will discuss NIPT with her insurance and when she is ready we will do the NIPT test and also schedule appointment for anatomy scan in [place]. Discussed SAB precautions. Continue vitamins. Return in 4 weeks OB check 06/13/25 <del>?</del> 15w 6d 54.998 kg 114/78 absent unknown 15 155 absent Doing well. Positive light movement. Patient denies leaking, denies bleeding, denies contractions. New swab today for GC and chlamydia. RPR, rubella, hepatitis B, hep C today. Discussed with patient ordering NIPT, carrier screen and AFP. And referral was requested for those. And I did a maternal- medicine ultrasound scheduled with Dr. Marr. Discussed SAB precautions. Return in 4 weeks for OB check 06/30/25 <del>?</del> 18w 2d 56.472 kg 108/69 absent unknown 18 145 active Doing well today. Light movement. Denies bleeding, leaking, contractions. Complains of second trimester discomfort Patient needs OB panel when she comes next visit. NIPT and AFP were today. Ultrasound of Dr. Marr is pending. Return in 4 weeks OB check 07/12/25 <del>?</del> 20w 0d 56.869 kg 121/73 absent unknown 20 140 active Reports movement. Denies bleeding, denies leaking, denies contractions. Discussed with OB. Placed patient on disability for 2-month intervals. Patient will be off work until September 12, 2025. Third trimester labs next visit. Include type Rh and ABO and RPR. MFM appointment is pending. Discussed labor precautions. Increase fluids. Return in 4 weeks OB check 08/03/25 <del>?</del> 23w 1d 59.137 kg 137/75 absent unknown 23 145 active No complaints of contractions. No leaking. No bleeding. Reports good movement. Patient has a follow-up ultrasound in 3 weeks for OB scan Keep appointment for anatomy scan. Discussed genetic screen as normal. Schedule third trimester labs. Return in 4 weeks OB EZEQUIEL Calculator Estimated Delivery Date Method Current WG Current Estimate 11/29/25 LMP (Certain) 23w 1d Other Estimates 12/04/25 Ultrasound #1 22w 3d 12/01/25 Ultrasound #2 22w 6d 11/29/25 Manual 23w 1d final EZEQUIEL: 11/29/25 Notes Visit Date: 08/03/25 Last Updated by: Emi Paredes CNM AFP-/NIPT-/girl Visit Date: 07/12/25 Last Updated by: Emi Paredes CNM 07/05: SMA-, HCV-,A1: 5.3, HIV-, HBSAG-, CF:pending, B+, GC/CT-, UA:clear Visit Date: 06/30/25 Last Updated by: Emi Paredes CNM sono: 04/13/25: 6w3: edc: 12/03/25. LMP: 02/26/25 partial OB labs: HIV-, A1c: 5.3, Visit Date: 06/13/25 Last Updated by: Emi Paredes CNM 25 yo . B+,abs-, RPR Visit Date: 05/16/25 Last Updated by: Emi Paredes CNM sono 04/13/25: 6w2. EDC 12/05/25 Office Procedures OBC Clinic LOC & Office Proc's Nursing/Assessment Patient Status: Established Patient OB Clinic Nursing Assessment: Medication Reconciliation, Update PMH in EMR and Vital Signs OB Clinic Coordination of Care: Education Complex Pt/Fam, Consent,records obtained, informed consent, Lab and Imaging orders, Results/Orders obtained and Staff clarify orders Special Needs: Heart tones Established Patient Charge Established Patient Point Assignment: 115 Established Patient Point Charge: EP Level 3 (80-115) Assessment & Plan Diagnosis / Problem List (1) Encounter for supervision of high risk in second trimester, antepartum: Status: Acute Plan Third trimester labs. Discussed AFP and NIPT with patient. Patient has a follow-up anatomy scan this month. Discussed labor precautions. Increase fluids. Continue prenatals. Return in 4 weeks OB check Additional Plan Follow Up: 4 Weeks (obc)
[2025-08-03 15:11] VITALS: BP 137/75; PULSE 96; RESP 16; TEMP 36.2; O2SAT 98; BMI 26.2
== END 2025-08-03 15:25 | disposition home or self-care (01) ==
LOC: HODSOBC 15:05
PROVIDERS: Supervising Provider Advanced Practice Midwife; Visit Provider Advanced Practice Midwife
DX: O09.92 Supervision of high risk pregnancy, unspecified, second trimester (principal); Z3A.23 23 weeks gestation of pregnancy
CPT/HCPCS: 99213; G0463

== ENCOUNTER 2025-10-05 10:35 | Outpatient (AMB) | payer MEDICAID, SELFPAY ==
[2025-10-05 10:44] VITALS: BP 108/71; PULSE 99; RESP 18; TEMP 36.4; O2SAT 98; BMI 29.9
--- NOTE | 2025-10-05 10:44 | OBCLNT_ITS ---
Vital Signs 10/05/25 10:44 Height 1.47 m Height Method Stated Weight 64.864 kg Weight Measurement Method Standing Scale BMI 29.9 BP 108/71 Blood Pressure Source Automatic Cuff Blood Pressure Location Left Upper Arm Position Sitting Respiration 18 Pulse 99 Pulse Source Monitor Temp 97.6 F Temp Source Oral Pulse Oximetry (%) 98 Oxygen Delivery Method Room Air Allergies/Home Meds Allergies & Medications Allergies No Known Allergies Allergy (Verified 10/05/25 10:45) Medication Reconciliation ondansetron 4 mg disintegrating tablet 4 mg PO Q8H PRN nausea and vomiting #14 tabs 07/08/25 [Rx Confirmed 10/05/25] Immunizations Immunizations Flu Vaccine in the Last 12 Months: No Flu Vaccine Exclusion Criteria: Refused by Patient Care OB Visit Log OB Flowsheet Initial Weight: Not Recorded Date -?-?-?-?-?-?-?-?-?-?-?-?- EGA Weight BP Alb Glu CTX Pres Fundal ht FHR Mov Dilation Station Effacement Hx Notes Visit Note 05/16/25 -?-?-?-?-?-?-?-?-?-?-?-?- 11w 1d 52.277 kg 116/75 absent unknown 11 156 absent 25-year-old 3 para 0 for OBI. She had a ultrasound April 13, 2025. Patient was 6 weeks 2 and this gives a due date . 25-year-old 3 para 0 for OBI. She had a ultrasound April 13, 2025. Patient was 6 weeks 2 and this gives a due date . no sab complaints. Happy, no VB,no UC,No leaking. taking PNV Schedule OB sono for viability here at the OB. I also ordered OB panel and hemoglobin A1c for today. Patient will discuss NIPT with her insurance and when she is ready we will do the NIPT test and also schedule appointment for anatomy scan in [place]. Discussed SAB precautions. Continue vitamins. Return in 4 weeks OB check 06/13/25 -?-?-?-?-?-?-?-?-?-?-?-?- 15w 1d 54.998 kg 114/78 absent unknown 15 155 absent Doing well. Positive light movement. Patient denies leaking, denies bleeding, denies contractions. New swab today f or GC and chlamydia. RPR, rubella, hepatitis B, hep C today. Discussed with patient ordering NIPT, carrier screen and AFP. And referral was requested for those. And I did a maternal- medicine ultrasound scheduled with Dr. Marr. Discussed SAB precautions. Return in 4 weeks for OB check 06/30/25 -?-?-?-?-?-?-?-?-?-?-?-?- 17w 4d 56.472 kg 108/69 absent unknown 18 145 active Doing well today. Light movement. Denies bleeding, leaking, contractions. Complains of second trimester discomfort Isabella ent needs OB panel when she comes next visit. NIPT and AFP were today. Ultrasound of Dr. Marr is pending. Return in 4 weeks OB check 07/12/25 -?-?-?-?-?-?-?-?-?-?-?-?- 19w 2d 56.869 kg 121/73 absent unknown 20 140 active Reports movement. Denies bleeding, denies leaking, denies contractions. Discussed with OB. Placed patient on disability for 2-month intervals. Patient will be off work until September 12, 2025. Third trimester labs next visit. Include type Rh and ABO and RPR. MFM appointment is pending. Discussed labor precautions. Increase fluids. Return in 4 weeks OB check 08/03/25 -?-?-?-?-?-?-?-?-?-?-?-?- 22w 3d 59.137 kg 137/75 absent unknown 23 145 active No complaints of contractions. No leaking. No bleeding. Reports good movement. Patient has a follow-up ultrasound in 3 weeks for OB scan Keep appointment for anatomy scan. Discussed genetic screen as normal. Schedule third trimester labs. Return in 4 weeks OB 09/09/25 -?-?-?-?-?-?-?-?-?-?-?-?- 27w 5d 63.56 kg 117/73 absent unknown 27 145 active Patient has been off work for 2 months because of exposure to aggressive and violent behavior in her clients. 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 So we will start disability today 09/09/2025. Discussed lab results and labor precautions and return in 4 weeks for OB check Start disability today09/09/25. Patient will return to work 6 weeks . Discussed labor precautions and labs. Return in 4 weeks OB check 10/05/25 -?-?-?-?-?-?-?-?-?-?-?-?- 31w 3d 64.864 kg 108/71 absent unknown 30 145 active Reports good movement. Denies leaking, bleeding, contractions. Patient feels better off work. She reports that she is taking Pepcid for indigestion Sono for growth. Discussed labor precautions. Patient declined Tdap and flu today. Discussed kick count and return in 2 weeks OB check. Continue Pepcid for indigestion and comfort measures for indigestion as well. Discussed weight gain. Increase activity EZEQUIEL Calculator Estimated Delivery Date Method Current WG Current Estimate 12/04/25 Ultrasound #1 31w 3d Other Estimates 11/29/25 LMP (Certain) 32w 1d 12/01/25 Ultrasound #2 31w 6d 12/04/25 Manual 31w 3d final EZEQUIEL: Notes Visit Date: 09/09/25 Last Updated by: Emi Paredes CNM Final EZEQUIEL based on MFM scan and 6 week scan: 12/04/25 3rd tri labs wnl Visit Date: 08/03/25 Last Updated by: Emi Paredes CNM AFP-/NIPT-/girl Visit Date: 07/12/25 Last Updated by: Emi Paredes CNM 07/05: SMA-, HCV-,A1: 5.3, HIV-, HBSAG-, CF:pending, B+, GC/CT-, UA:clear Visit Date: 06/30/25 Last Updated by: Emi Paredes CNM sono: 04/13/25: 6w3: edc: 12/03/25. LMP: 02/26/25 partial OB labs: HIV-, A1c: 5.3, Visit Date: 06/13/25 Last Updated by: Emi Paredes CNM 25 yo . B+,abs-, RPR Visit Date: 05/16/25 Last Updated by: Emi Paredes CNM sono 04/13/25: 6w2. EDC 2/26 Office Procedures O[facility] Clinic LOC & Office Proc's Nursing/Assessment Patient Status: Established Patient OB Clinic Nursing Assessment: Medication Reconciliation, Update PMH in EMR and Vital Signs OB Clinic Coordination of Care: Complex Care and Chronic Disease 1-5, Consent,records obtained, informed consent, Education Simp Pt/Fam, 1 Ins Authorization, Lab and Imaging orders, Results/Orders obtained and Staff clarify orders Special Needs: Heart tones Established Patient Charge Established Patient Point Assignment: 150 Established Patient Point Charge: EP Level 4 (120-155) Assessment & Plan Diagnosis / Problem List (1) Encounter for supervision of high risk in third trimester, antepartum: Status: Acute Plan Declined Tdap and flu today. I gave information. Discussed labor precautions. Kick count twice a day. Ultrasound for growth. Return in 2 weeks OB check. Okay to continue with Pepcid for indigestion Additional Plan Follow Up: 2 Weeks (obc)
== END 2025-10-05 11:11 | disposition home or self-care (01) ==
LOC: HODSOBC 10:35
PROVIDERS: Supervising Provider Advanced Practice Midwife; Visit Provider Advanced Practice Midwife
DX: O09.893 Supervision of other high risk pregnancies, third trimester (principal); O99.613 Diseases of the digestive system complicating pregnancy, third trimester; K30 Functional dyspepsia; Z3A.31 31 weeks gestation of pregnancy; Z28.21 Immunization not carried out because of patient refusal
CPT/HCPCS: 99214; G0463

== ENCOUNTER 2025-11-01 14:57 | Outpatient (AMB) | payer MEDICAID, SELFPAY ==
[2025-11-01 15:15] VITALS: BP 111/77; PULSE 91; RESP 18; TEMP 36.4; O2SAT 97; BMI 29.6
--- NOTE | 2025-11-01 15:15 | OBCLNT_ITS ---
Vital Signs 11/01/25 15:15 Height 1.5 m Height Method Stated Weight 66.735 kg Weight Measurement Method Standing Scale BMI 29.6 BP 111/77 Blood Pressure Source Automatic Cuff Blood Pressure Location Left Upper Arm Position Sitting Respiration 18 Pulse 91 Pulse Source Monitor Temp 97.5 F Temp Source Oral Pulse Oximetry (%) 97 Oxygen Delivery Method Room Air Allergies/Home Meds Allergies & Medications Allergies No Known Allergies Allergy (Verified 11/01/25 15:20) Medication Reconciliation ondansetron 4 mg disintegrating tablet 4 mg PO Q8H PRN nausea and vomiting #14 tabs 07/08/25 [Rx Confirmed 11/01/25] Immunizations Immunizations Flu Vaccine in the Last 12 Months: Yes Date of most recent flu vaccination: 11/01/25 Flu Vaccine Exclusion Criteria: Already Received Care OB Visit Log OB Flowsheet Initial Weight: Not Recorded Date -?-?-?-?-?-?-?-?-?-?-?-?- EGA Weight BP Alb Glu CTX Pres Fundal ht FHR Mov Dilation Station Effacement Hx Notes Visit Note 05/16/25 -?-?-?-?-?-?-?-?-?-?-?-?- 11w 1d 52.277 kg 116/75 absent unknown 11 156 absent 25-year-old 3 para 0 for OBI. She had a ultrasound April 13, 2025. Patient was 6 weeks 2 and this gives a due date . 25-year-old 3 para 0 for OBI. She had a ultrasound April 13, 2025. Patient was 6 weeks 2 and this gives a due date . no sab complaints. Happy, no VB,no UC,No leaking. taking PNV Schedule OB [facility] for [facility]. I also ordered OB panel and hemoglobin A1c for today. Patient will discuss NIPT with her insurance and when she is ready we will do the NIPT test and also schedule appointment for anatomy scan in [place]. Discussed SAB precautions. Continue vitamins. Return in 4 weeks OB check 06/13/25 -?-?-?-?-?-?-?-?-?-?-?-?- 15w 1d 54.998 kg 114/78 absent unknown 15 155 absent Doing well. Positive light movement. Patient denies leaking, denies bleeding, denies contractions. New swab today f or GC and chlamydia. RPR, rubella, hepatitis B, hep C today. Discussed with patient ordering NIPT, carrier screen and AFP. And referral was requested for those. And I did a maternal- medicine ultrasound scheduled with Dr. Marr. Discussed SAB precautions. Return in 4 weeks for OB check 06/30/25 -?-?-?-?-?-?-?-?-?-?-?-?- 17w 4d 56.472 kg 108/69 absent unknown 18 145 active Doing well today. Light movement. Denies bleeding, leaking, contractions. Complains of second trimester discomfort Isabella ent needs OB panel when she comes next visit. NIPT and AFP were today. Ultrasound of Dr. Marr is pending. Return in 4 weeks OB check 07/12/25 -?-?-?-?-?-?-?-?-?-?-?-?- 19w 2d 56.869 kg 121/73 absent unknown 20 140 active Reports movement. Denies bleeding, denies leaking, denies contractions. Discussed with OB. Placed patient on disability for 2-month intervals. Patient will be off work until September 12, 2025. Third trimester labs next visit. Include type Rh and ABO and RPR. MFM appointment is pending. Discussed labor precautions. Increase fluids. Return in 4 weeks OB check 08/03/25 -?-?-?-?-?-?-?-?-?-?-?-?- 22w 3d 59.137 kg 137/75 absent unknown 23 145 active No complaints of contractions. No leaking. No bleeding. Reports good movement. Patient has a follow-up ultrasound in 3 weeks for OB scan Keep appointment for anatomy scan. Discussed genetic screen as normal. Schedule third trimester labs. R eturn in 4 weeks OB 09/09/25 -?-?-?-?-?-?-?-?-?-?-?-?- 27w 5d 63.56 kg 117/73 absent unknown 27 145 active Patient has been off work for 2 months because of exposure to aggressive and violent behavior in her clients. 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 So we will start disability today 09/09/2025. Discussed lab results and labor precautions and return in 4 weeks for OB check Start disability today09/09/25. Patient will return to work 6 weeks . Discussed labor precautions and labs. Return in 4 weeks OB check 10/05/25 -?-?-?-?-?-?-?-?-?-?-?-?- 31w 3d 64.864 kg 108/71 absent unknown 30 145 active Reports good movement. Denies leaking, bleeding, contractions. Patient feels better off work. She reports that she is taking Pepcid for indigestion Sono for growth. Discussed labor precautions. Patient declined Tdap and flu today. Discussed kick count and return in 2 weeks OB check. Continue Pepcid for indigestion and comfort measures for indigestion as well. Discussed weight gain. Increase activity 11/01/25 -?-?-?-?-?-?-?-?-?-?-?-?- 35w 2d 66.735 kg 111/77 occasional cephalic 35 146 active fetus active, occ uc, denies bleeding or leaking G BS today, discuss labor precaution, fkc bid. discuss ER precaution, rtc 1 week obc GBS today, discuss labor pre caution, fkc bid. discuss ER precaution, rtc 1 week obc. tdap and flu today EZEQUIEL Calculator Estimated Delivery Date Method Current WG Current Estimate 12/04/25 Ultrasound #1 35w 2d Other Estimates 11/29/25 LMP (Certain) 36w 0d 12/01/25 Ultrasound #2 35w 5d 12/04/25 Manual 35w 2d final EZEQUIEL: Notes Visit Date: 11/01/25 Last Updated by: Emi Paredes CNM sono 10/19: EFW 45.6%, VERTEX, NORMAL reese Visit Date: 09/09/25 Last Updated by: Emi Paredes CNM Final EZEQUIEL based on MFM scan and 6 week scan: 12/04/25 3rd tri labs wnl Visit Date: 08/03/25 Last Updated by: Emi Paredes CNM AFP-/NIPT-/girl Visit Date: 07/12/25 Last Updated by: Emi Paredes CNM 07/05: SMA-, HCV-,A1: 5.3, HIV-, HBSAG-, CF:pending, B+, GC/CT-, UA:clear Visit Date: 06/30/25 Last Updated by: Emi Paredes CNM sono: 04/13/25: 6w3: edc: 12/03/25. LMP: 02/26/25 partial OB labs: HIV-, A1c: 5.3, Visit Date: 06/13/25 Last Updated by: Emi Paredes CNM 25 yo . B+,abs-, RPR Visit Date: 05/16/25 Last Updated by: Emi Paredes CNM sono 04/13/25: 6w2. EDC 12/05/25 Office Procedures OBC Clinic LOC & Office Proc's Nursing/Assessment Patient Status: Established Patient OB Clinic Nursing Assessment: Medication Reconciliation, Update PMH in EMR and Vital Signs OB Clinic Coordination of Care: Complex Care and Chronic Disease 1-5, Consent,records obtained, informed consent, Education Simp Pt/Fam, 1 Ins Authorization, Lab and Imaging orders, Results/Orders obtained and Staff clarify orders Special Needs: Heart tones Established Patient Charge Established Patient Point Assignment: 150 Established Patient Point Charge: EP Level 4 (120-155) Injection/Vaccine Admin Admin 1st Vaccine: Yes Admin 2nd Vaccine: Yes Immunizations flu vac ts (6mos up)-PF 45 mcg(15mcg x3)/0.5 mL IM syringe Performing Provider: Emi Paredes CNM Performing Location: [facility] Clinic Administered by: Destiney Balderas MA on 11/01/25 16:11 Dose Route Admin Location Dispensed Lot Number Expiration Date Pack age [place] [employer] 0.5 mL IM Left Deltoid 0.5 mL [id number] 05/02/26 60080-041-51 [id number] [employer] VIS Given Date VIS Provided VIS Publication Date 11/01/25 Single Vaccine 24 Eligibility Eligibility Date Funding Source Public Non-VFC diphth,pertus(acell),tetanus 2.5 Lf unit-8 mcg-5 Lf/0.5mL IM syringe Performing Provider: Emi Paredes CNM Performing Location: [facility] Clinic Administered by: Destiney Balderas MA on 11/01/25 16:11 Dose Route Admin Location Dispensed Lot Number Expiration Date Pack age NDC NDC [employer] [employer] 0.5 mL IM Left Deltoid 0.5 mL [id number] 04/21/28 [id number] [employer] VIS Given Date VIS Provided VIS Publication Date 11/01/25 Single Vaccine 25 Eligibility Eligibility Date Funding Source [facility] Assessment & Plan Diagnosis / Problem List (1) Encounter for supervision of high risk in third trimester, antepartum: Status: Acute Plan discuss labor precaution and s/s of danger sign. discuss ER precaution. FKC bid, GBS today. rtc 2 week obc, TDAP and flu todayt Additional Plan Follow Up: 1 Week (obc)
== END 2025-11-01 15:51 | disposition home or self-care (01) ==
LOC: HODSOBC 14:57
PROVIDERS: Supervising Provider Advanced Practice Midwife; Visit Provider Advanced Practice Midwife
DX: O09.93 Supervision of high risk pregnancy, unspecified, third trimester (principal); Z3A.35 35 weeks gestation of pregnancy; Z23 Encounter for immunization; Z36.85 Encounter for antenatal screening for Streptococcus B
CPT/HCPCS: 90471; 90472; 90656; 90715; 99214; G0463